=== PATIENT | male | born 1965 | race Caucasian/White ===

== ENCOUNTER → 2024-06-26 | Day surgery (SDC) | payer MEDICAID ==
[~2024-06-26] VITALS: Ht 170.2 cm; Wt 74.0 kg
[~2024-06-26] MED LIST: BALANCED SALT IRRIG SOLN COMB1 500ML OP NR; CALC667T6 PO; CYCLOPENTOLATE HCL 1% OPHTH DROPS 2ML RIGHTEYE NR; FURO-151 PO; HYDR100T11 PO; LACT10PA5 PO; LOSA50TA41 PO; PHENYLEPHRINE HCL 10% OPHTH DROPS 5ML RIGHTEYE NR; SODIUM CHLORIDE 0.9% 500 ML IV SCH; TROPICAMIDE 1% OPHTH DROPS 15ML RIGHTEYE NR
[2024-06-26 09:29] LABS: POTASSIUM 4.5 mEq/L (3.5-5.1)
[2024-06-26 09:30] LABS: CALCIUM 8.4 mg/dL (8.7-10.4)
[2024-06-26 09:39] LABS: CREATININE 9.3 mg/dL (0.6-1.3)
== END | disposition home or self-care (01) ==
LOC: OR 08:29
PROVIDERS: ATTEND Ophthalmology
DX: E11.36 Type 2 diabetes mellitus with diabetic cataract (principal); Z53.8 Procedure and treatment not carried out for other reasons; H25.12 Age-related nuclear cataract, left eye; H25.11 Age-related nuclear cataract, right eye; Z79.899 Other long term (current) drug therapy; Z98.890 Other specified postprocedural states
CPT/HCPCS: 36415; 80048; 93005

== ENCOUNTER → 2024-10-02 | Day surgery (SDC) | payer OTHER ==
[~2024-10-02] VITALS: Ht 170.2 cm; Wt 74.0 kg
[~2024-10-02] MED LIST changes: +ACETAZOLAMIDE SODIUM 500MG/VIAL IV ONE; +ACETYLCHOLINE CHLORIDE INTRAOCULAR SOLUTION 1:100 ELECTROLYTE DILUENT IO ONE; -BALANCED SALT IRRIG SOLN COMB1 500ML OP NR; +BALANCED SALT IRRIG SOLN COMB2 500ML OP NR; -CYCLOPENTOLATE HCL 1% OPHTH DROPS 2ML RIGHTEYE NR; +CYCLOPENTOLATE HCL 1% OPHTH DROPS 2ML RIGHTEYE ONE; +CYCLOPENTOLATE HCL 1% OPHTH DROPS 2ML RIGHTEYE SCH; +FENTANYL CITRATE/PF 50MCG/ML 2ML VIAL ONE; +HYALURONATE SODIUM 10MG/ML 0.55ML SYRINGE IO ONE; +HYDROMORPHONE HCL/PF 1MG/ML INJ IV PRN; +LABETALOL 5MG/ML 4ML INJ IV PRN; +MIDAZOLAM HCL 2 MG/2 ML VIAL ONE; +ONDANSETRON HCL 4MG/2ML INJ IV PRN; -PHENYLEPHRINE HCL 10% OPHTH DROPS 5ML RIGHTEYE NR; +PHENYLEPHRINE HCL 10% OPHTH DROPS 5ML RIGHTEYE ONE; +PHENYLEPHRINE HCL 10% OPHTH DROPS 5ML RIGHTEYE SCH; +SODIUM CHLORIDE 0.9% 500 ML IV NR; +SODIUM CHLORIDE 0.9% 500 ML IV ONE; -SODIUM CHLORIDE 0.9% 500 ML IV SCH; +TRIAMCINOLONE ACETONIDE 40MG/ML 1ML VIAL ONE; -TROPICAMIDE 1% OPHTH DROPS 15ML RIGHTEYE NR; +TROPICAMIDE 1% OPHTH DROPS 15ML RIGHTEYE ONE; +TROPICAMIDE 1% OPHTH DROPS 15ML RIGHTEYE SCH; +TRYPAN BLUE 0.5 ML DISP.SYRIN IO ONE
[2024-10-02 05:59] LABS: BASOPHILS % 1.2 % (0.0-2.0); EOSINOPHILS % 5.4 % (0.0-5.0); HEMATOCRIT. 37.9 % (42.0-52.0); HEMOGLOBIN. 12.6 g/dL (14.0-18.0); LYMPHOCYTES % 21.5 % (20.0-50.0); MEAN CORPUSCULAR HEMOGLOBIN 30.7 pg (28.0-32.0); MEAN CORPUSCULAR HGB CONC 33.2 g/dL (31.0-37.0); MEAN CORPUSCULAR VOLUME 92.7 fL (80.0-94.0); MEAN PLATELET VOLUME 7.8 fl (7.4-10.4); MONOCYTES % 18.4 % (2.0-8.0); NEUTROPHILS % 53.5 % (40.0-76.0); PLATELET 224 x1000/uL (130-400); RED BLOOD CELL COUNT 4.09 mill/uL (4.7-6.1); WHITE BLOOD COUNT 4.5 x1000/uL (4.5-11.0)
[2024-10-02 06:07] LABS: POTASSIUM 4.3 mEq/L (3.5-5.1)
[2024-10-02 06:10] LABS: DIFFERENTIAL COMMENT 1
[2024-10-02 06:17] LABS: CREATININE 10.7 mg/dL (0.6-1.3)
[2024-10-02 10:10] VITALS: BP 121/68; PULSE 57; RESP 15
[2024-10-02] MEDS: MEPERIDINE HCL/PF 25MG/ML CPJ IV PRN (10:10)
[2024-10-02] MEDS: ACETAZOLAMIDE SODIUM 500MG/VIAL IV NR (10:52)
[2024-10-02] MEDS: ACETAMINOPHEN 1000MG/100ML 100 ML IV NR (10:55)
== END | disposition home or self-care (01) ==
LOC: OR 05:35
PROVIDERS: ATTEND Ophthalmology
DX: H25.21 Age-related cataract, morgagnian type, right eye (principal); I12.0 Hypertensive chronic kidney disease with stage 5 chronic kidney disease or end stage renal disease; N18.6 End stage renal disease; Z79.899 Other long term (current) drug therapy; Z98.890 Other specified postprocedural states; Z99.2 Dependence on renal dialysis
CPT/HCPCS: 66982; 93005; 80048; 85025; 36415; J3010; J2003; J2250; J1120; J3301; J2175; J3490; Q9957; J0131; V2632

== ENCOUNTER → 2025-02-15 | Day surgery (SDC) | payer MEDICAID ==
[~2025-02-15] VITALS: Ht 170.2 cm; Wt 77.0 kg
[~2025-02-15] MED LIST changes: +ACETAMINOPHEN 1000MG/100ML 100 ML IV ONE; -ACETAZOLAMIDE SODIUM 500MG/VIAL IV ONE; -ACETYLCHOLINE CHLORIDE INTRAOCULAR SOLUTION 1:100 ELECTROLYTE DILUENT IO ONE; +BALANCED SALT IRRIG SOLN COMB1 500ML OP NR; -BALANCED SALT IRRIG SOLN COMB2 500ML OP NR; +CYCLOPENTOLATE HCL 1% OPHTH DROPS 2ML LEFTEYE ONE; -CYCLOPENTOLATE HCL 1% OPHTH DROPS 2ML RIGHTEYE ONE; -CYCLOPENTOLATE HCL 1% OPHTH DROPS 2ML RIGHTEYE SCH; -HYDROMORPHONE HCL/PF 1MG/ML INJ IV PRN; -LABETALOL 5MG/ML 4ML INJ IV PRN; +METO-539 PO; -ONDANSETRON HCL 4MG/2ML INJ IV PRN; +ONDANSETRON HCL 4MG/2ML INJ ONE; +PHENYLEPHRINE HCL 10% OPHTH DROPS 5ML LEFTEYE ONE; -PHENYLEPHRINE HCL 10% OPHTH DROPS 5ML RIGHTEYE ONE; -PHENYLEPHRINE HCL 10% OPHTH DROPS 5ML RIGHTEYE SCH; +PROPOFOL 10MG/ML 100ML 100 ML IV ONE; +PROPOFOL 200MG/20ML VIAL IV ONE; -SODIUM CHLORIDE 0.9% 500 ML IV NR; -SODIUM CHLORIDE 0.9% 500 ML IV ONE; +TROPICAMIDE 1% OPHTH DROPS 15ML LEFTEYE ONE; -TROPICAMIDE 1% OPHTH DROPS 15ML RIGHTEYE ONE; -TROPICAMIDE 1% OPHTH DROPS 15ML RIGHTEYE SCH
[2025-02-15 11:15] LABS: UREA NITROGEN BLOOD 70.0 mg/dL (9-23)
[2025-02-15 11:45] LABS: CREATININE 9.3 mg/dL (0.6-1.3)
== END | disposition home or self-care (01) ==
LOC: OR 10:30
PROVIDERS: ATTEND Ophthalmology
DX: E11.36 Type 2 diabetes mellitus with diabetic cataract (principal); H25.12 Age-related nuclear cataract, left eye; H57.03 Miosis; I12.0 Hypertensive chronic kidney disease with stage 5 chronic kidney disease or end stage renal disease; E11.22 Type 2 diabetes mellitus with diabetic chronic kidney disease; N18.6 End stage renal disease; Z99.2 Dependence on renal dialysis; Z79.899 Other long term (current) drug therapy; Z98.890 Other specified postprocedural states
CPT/HCPCS: 66982; 80048; 36415; J3010; J2250; J2405; J2704 ×2; J3301; J3490; Q9957; A4217; J0131; V2632